=== PATIENT | male | born 1975 | race Caucasian/White ===

== ENCOUNTER 2025-02-14 06:14 | Day surgery (SDC) | payer BC ==
[2025-02-13 09:20] VITALS: BMI 33.4
[2025-02-14] MEDS ORDERED: AFRIN NASAL MIST 15 ML BOT ONE (06:36)
[2025-02-14] MEDS ORDERED: Lidocaine 1% w/Epinephrine 1:200K 30 ML VIAL ONE (07:23)
[2025-02-14] MEDS ORDERED: Lidocaine 1% PF 5 ML VIAL ONE (07:42)
[2025-02-14] MEDS ORDERED: PROPOFOL 40 ML ONE (07:42)
[2025-02-14] MEDS ORDERED: Rocuronium Bromide 10 MG/ML (10ML VIAL) ONE (07:42)
[2025-02-14] MEDS ORDERED: SUGAMMADEX SODIUM 200 MG/2 ML VIAL ONE (07:42)
[2025-02-14] MEDS ORDERED: Ondansetron PF 4 MG/2 ML Vial ONE (07:42)
[2025-02-14] MEDS ORDERED: Oxymetazoline HCl 0.05% (15 ML) ONE (08:33)
== END 2025-02-14 10:38 | disposition home or self-care (01) ==
LOC: CSHSDC 06:14
PROVIDERS: ATTEND Specialist
PROC: 09TL8ZZ Resection of Nasal Turbinate, Via Natural or Artificial Opening Endoscopic (ICD-10-PCS; principal; 2025-02-14)
PROC: 0CBV8ZX Excision of Left Vocal Cord, Via Natural or Artificial Opening Endoscopic, Diagnostic (ICD-10-PCS; principal; 2025-02-14)
DX: J34.3 Hypertrophy of nasal turbinates (principal); J38.3 Other diseases of vocal cords; J30.9 Allergic rhinitis, unspecified; B37.0 Candidal stomatitis; K21.00 Gastro-esophageal reflux disease with esophagitis, without bleeding; G47.33 Obstructive sleep apnea (adult) (pediatric); E78.00 Pure hypercholesterolemia, unspecified; E66.9 Obesity, unspecified; Z68.33 Body mass index [BMI] 33.0-33.9, adult; Z88.1 Allergy status to other antibiotic agents; Z79.899 Other long term (current) drug therapy
CPT/HCPCS: 88305; J0169; J1100; J2704